=== PATIENT | female | born 1950 | race Caucasian/White ===

== ENCOUNTER 2018-03-12 11:02 | Emergency (ER) | payer BC, MEDICARE ==
[2018-03-12 11:35] LABS: ABS Basophils 0.1 10^3/ul (0-0.2); ABS Eosinophils 0 10^3/ul (0-0.6); ABS Lymphocytes 0.7 10^3/ul (1.0-4.8); ABS Monocytes 0.9 10^3/ul (0-0.8); ABS Neutrophils 5.9 10^3/ul (1.5-7.7); ABS Nucleated RBC 0 10^3/ul; Eosinophil % 0.2 % (0-6); Hematocrit 46 % (35-47); Hemoglobin 15.9 g/dl (12.0-16.0); Lymphocyte % 9.4 % (25-47); Mean Corpuscular HGB Conc 34 g/dl (31-36); Mean Corpuscular Hemoglobin 32 pg (27-31); Mean Corpuscular Volume 94 fL (80-97); Mean Platelet Volume 9.1 um3 (7.4-10.4); Nucleated Red Blood Cells % 0.4; Platelet Count 163 10^3/ul (150-450); Red Blood Count 4.92 10^6/ul (4.0-5.4); Red Cell Distribution Width 13 % (10.5-15); White Blood Count 7.6 10^3/ul (3.5-10.8)
[2018-03-12 11:44] LABS: INR 1.03 (0.77-1.02)
--- NOTE | 2018-03-12 11:46 | RAD ---
INDICATION: Chest pain. COMPARISON: Correlation is made with a prior study from March 25, 2003. TECHNIQUE: A portable view of the chest was obtained. FINDINGS: Cardiac and mediastinal contours appear to be within normal limits. The lungs are hyperinflated and clear. No pleural effusion is seen. IMPRESSION: FINDINGS SUGGESTIVE OF COPD, NO EVIDENCE FOR ACUTE FINDING.
[2018-03-12 11:54] LABS: EGFR Non-African American 98.4 (>60)
[2018-03-12 15:14] VITALS: BP 120/79
--- NOTE | 2018-03-13 16:24 | ED ---
Ronnie Swartz Thomas, scribed for Ras Duvall MD on 03/12/18 at 1135 . HPI Chest Pain - HPI Summary HPI Summary: The patient is a 67 year old female complaining of chest pain that began last night. The pain radiates to her neck. The pain is described as pressure. The pain is aggravating by breathing and bending over. The pain was more severe last night than this morning. She has never had this pain before. The patient denies sour taste in her mouth, nausea, vomiting, and new-onset shortness of breath. She is on Lisinopril, amlodipine, simvastatin, and an unspecified antidepressant. She is in town for her fathers . - History of Current Complaint Chief Complaint: EDChestPainROMI Time Seen by Provider: 03/12/18 11:14 Hx Obtained From: Patient Onset/Duration: Started Hours Ago - onset last night, Still Present Timing: Constant Initial Severity: Moderate Current Severity: Mild Pain Intensity: 2 Pain Scale Used: 0-10 Numeric Chest Pain Radiates: Yes Chest Pain Radiates To:: Neck Character: Pressure/Squeezing Aggravating Factor(s): Other: - Brathing, bending over Alleviating Factor(s): Nothing Associated Signs and Symptoms: Positive: Chest Pain. Negative: Other: - sour taste in mouth, nausea, vomiting, new-onset SOB - Allergy/Home Medications Allergies/Adverse Reactions: Allergies Allergy/AdvReac Type Severity Reaction Status Date / Time No Known Allergies Allergy Mild See Comment Verified 03/12/18 14:55 Home Medications: Home Medications Aspirin EC TAB* [Ecotrin EC Low Dose 81 MG*] 81 mg PO DAILY 03/12/18 [History Confirmed 03/12/18] Lisinopril TAB* [Prinivil TAB*] 40 mg PO DAILY 03/12/18 [History Confirmed 03/12] Methimazole TAB* [Tapazole TAB*] 2.5 mg PO DAILY 03/12/18 [History Confirmed 11/17] Sertraline* [Zoloft*] 100 mg PO DAILY 03/12/18 [History Confirmed 03/12/18] Simvastatin TAB(NF) [Zocor(NF)] 10 mg PO DAILY 03/12/18 [History Confirmed 03/12] amLODIPine TAB* [Norvasc 5 mg TAB*] 5 mg PO DAILY 03/12/18 [History Confirmed ] PMH/Surg Hx/FS Hx/Imm Hx Cardiovascular History: Reports: Hx Hypercholesterolemia, Hx Hypertension Comment Only: Other Cardiovascular Problems/Disorders - family history of heart disease Respiratory History: Reports: Hx Chronic Obstructive Pulmonary Disease (COPD) Psychiatric History: Reports: Hx Depression Infectious Disease History: No Infectious Disease History: Denies: Traveled Outside the [place] in Last 30 Days - Family History Known Family History: Positive: Cardiac Disease - mother from [place] at 61 - Social History Occupation: Employed Full-time - as a nurse Alcohol Use: Occasionally Substance Use Type: Reports: None Hx Tobacco Use: Yes Smoking Status (MU): Heavy Every Day Tobacco Smoker Review of Systems Negative: Other - sour taste in mouth Positive: Chest Pain Negative: Shortness Of Breath - new-onset Negative: Vomiting, Nausea All Other Systems Reviewed And Are Negative: Yes Physical Exam - Summary Physical Exam Summary: VITAL SIGNS: Reviewed. GENERAL: Patient is a well-developed and nourished female who is lying comfortable in the stretcher. Patient is not in any acute respiratory distress. HEAD AND FACE: No signs of trauma. No ecchymosis, hematomas or skull depressions. No sinus tenderness. EYES: PERRLA, EOMI x 2, No injected conjunctiva, no nystagmus. EARS: Hearing grossly intact. Ear canals and tympanic membranes are within normal limits. MOUTH: Oropharynx within normal limits. NECK: Supple, trachea is midline, no adenopathy, no JVD, no carotid bruit, no c- spine tenderness, neck with full ROM. CHEST: Symmetric, no tenderness at palpation LUNGS: Clear to auscultation bilaterally. No wheezing or crackles. CVS: Regular rate and rhythm, S1 and S2 present, no murmurs or gallops appreciated. ABDOMEN: Soft, non-tender. No signs of distention. No rebound no guarding, and no masses palpated. Bowel sounds are normal. EXTREMITIES: FROM in all major joints, no edema, no cyanosis or clubbing. NEURO: Alert and oriented x 3. No acute neurological deficits. Speech is normal and follows commands. SKIN: Dry and warm Triage Information Reviewed: Yes Vital Signs On Initial Exam: Initial Vitals Temp Pulse Resp BP Pulse Ox 99.4 F 89 13 122/70 94 03/12/18 11:13 03/12/18 11:13 03/12/18 11:13 03/12/18 11:13 03/12/18 11:13 Vital Signs Reviewed: Yes Diagnostics - Vital Signs Vital Signs Temp Pulse Resp BP Pulse Ox 03/12/18 11:17 88 23 122/70 94 03/12/18 11:16 90 29 93 03/12/18 11:13 99.4 F 89 13 122/70 94 - Laboratory Result Diagrams: 03/12/18 11:27 03/12/18 11:27 Lab Statement: Any lab studies that have been ordered have been reviewed, and results considered in the medical decision making process. - Radiology CXR Xray Interpretation: No Acute Changes - IMPRESSION: FINDINGS SUGGESTIVE OF COPD , NO EVIDENCE FOR ACUTE FINDING. Dr. Duvall has reviewed this report. Radiology Interpretation Completed By: Radiologist - EKG 11:17 Cardiac Rate: NL EKG Rhythm: Sinus Rhythm - at 90 BPM EKG Interpretation: No ST elevations. Re-Evaluation - Re-Evaluation First Eval Re-Evaluation Time: 13:11 Comment: There is no chest pain. She is doing well. She is eating and drinking. Chest Pain Course/Dx - Course Assessment/Plan: The patient is a 67 year old female complaining of chest pain that began last night. The pain radiates to her neck. The pain is described as pressure. The pain is aggravating by breathing and bending over. The pain was more severe last night than this morning. She has never had this pain before. The patient denies sour taste in her mouth, nausea, vomiting, and new-onset shortness of breath. Test results are without significant abnormalities except glucose 127, BNP 119. Two troponins four hours apart were both 0.00. The patient continues to be asymptomatic. The EKG does not show any ST elevations. Therefore, I have low suspicion for acute coronary syndrome. I offered the patient admission for observation, but however since the patient does have her fathers tonight, she does not want to be admitted and would like to be discharged home for follow up with her primary care provider. The patient was not tachycardic or hypoxic; therefore I do not have any suspicion for PE. At this point, the patient will be discharged home to follow up with primary care provider. The patient was instructed to return to the emergency department if she develops any other symptoms. She understands and agrees. - Diagnoses Provider Diagnoses: Chest pain Discharge - Sign-Out/Discharge Documenting (check all that apply): Discharge - Discharge Plan Condition: Stable Disposition: HOME Prescriptions: Pantoprazole Sodium [Protonix] 40 mg PO DAILY #20 Patient Education Materials: Chest Pain (ED) Referrals: [facility] [place] [place] [Outside] - 3 Days Additional Instructions: Follow up with your primary care physician in three days. If you do not have a primary care provider, you can use the [facility] [place] service to find one and make an appointment. Return to the emergency department for any new or worsening symptoms. The documentation as recorded by the Ronnie tavares Thomas accurately reflects the service I personally performed and the decisions made by , Ras Duvall MD.
== END 2018-03-12 15:12 | disposition home or self-care (01) ==
LOC: ED 11:02
DX: R07.9 Chest pain, unspecified (principal); E78.00 Pure hypercholesterolemia, unspecified; I10 Essential (primary) hypertension; F32.9 Major depressive disorder, single episode, unspecified; J44.9 Chronic obstructive pulmonary disease, unspecified; Z82.49 Family history of ischemic heart disease and other diseases of the circulatory system; Z79.82 Long term (current) use of aspirin
CPT/HCPCS: 36415; 71045; 80053; 82550; 82553; 83735; 83874; 83880; 84443; 84484; 85025; 85610; 93005; 99283